=== PATIENT | male | born 1975 | race Caucasian/White ===

== ENCOUNTER 2019-09-20 08:53 | Emergency (ER) | payer OTHER ==
--- NOTE | 2019-09-20 10:10 | EDM.PDOC ---
ED HPI GENERAL MEDICAL PROBLEM - General Chief Complaint: Respiratory Problem Stated Complaint: SOB Time Seen by Provider: 09/20/19 10:10 Source of Information: Reports: Patient History Limitations: Reports: No Limitations - History of Present Illness INITIAL COMMENTS - FREE TEXT/NARRATIVE: HISTORY AND PHYSICAL: History of present illness: Patient is a 44-year-old male presents to the ED with complaint of shortness of breath. Patient states he had a cold with cough and runny nose 6 weeks ago. He states he started feeling better but the shortness of breath has not improved. He reports a tickle in is throat that makes him want to clear it/cough but otherwise cough has resolved. Patient states he has a lot of nasal congestion. He denies chest pain, sore throat, fevers, chills, abdominal pain, vomiting, diarrhea, lower extremity pain or swelling. He states he recently travelled to [place] and back this past week but states symptoms began before then and are not worsened since travelling. Review of systems: As per history of present illness and below otherwise all systems reviewed and negative. Past medical history: As per history of present illness and as reviewed below otherwise noncontributory. Surgical history: As per history of present illness and as reviewed below otherwise noncontributory. Social history: No reported history of drug or alcohol abuse. Family history: As per history of present illness and as reviewed below otherwise noncontributory. Physical exam: General: Patient sitting comfortably in no acute distress and nontoxic appearing HEENT: Atraumatic, normocephalic, pupils reactive, negative for conjunctival pallor or scleral icterus, mucous membranes moist, throat clear, neck supple, nontender, trachea midline. No meningeal signs. Lungs: Clear to auscultation, breath sounds equal bilaterally, chest nontender. Heart: S1S2, regular, negative for clicks, rubs, or overt murmur. Abdomen: Soft, nondistended, nontender. Negative for masses or hepatosplenomegaly. Negative for costovertebral tenderness. No rigidity, rebound , guarding. Pelvis: Stable nontender. Genitourinary: Deferred. Rectal: Deferred. Extremities: Atraumatic, negative for cords or calf pain. Neurovascular unremarkable. Neuro: Awake, alert, oriented. Cranial nerves II through XII unremarkable. Cerebellum unremarkable. Motor and sensory unremarkable throughout. Exam nonfocal. Notes: Patient blood pressure is elevated in the ED. He declines chest pain, headache, dizziness. EKG shows normal sinus rhythm without any ST-T wave changes. Patient states he is suppose to be on blood pressure medication but has not been taking it. Discussed with patient getting labs including troponin but patient declined at this time and states he will follow up with primary care provider. He understands to return to ED if new or worsening symptoms. Diagnostics: Chest x-ray, EKG Therapeutics: none Prescriptions: Ventolin inhaler Augmenting Impression: Bronchitis, sinusitis Plan: Take medications as prescribed Follow up with primary care provider Return to ED as needed as discussed Definitive disposition and diagnosis as appropriate pending reevaluation and review of above. - Related Data Allergies Allergy/AdvReac Type Severity Reaction Status Date / Time morphine Allergy Other Verified 09/20/19 09:12 Home Meds: Home Meds Albuterol [Ventolin HFA] 1 puff INH Q4H #1 inhaler 09/20/19 [Rx] Amoxicillin/Potassium Clav [Augmentin 875-125 Tablet] 1 each PO BID 7 Days #14 tablet 09/20/19 [Rx] Past Medical History - Past Health History Medical/Surgical History: Denies Medical/Surgical History Cardiovascular History: Reports: High Cholesterol, Hypertension - Past Surgical History Musculoskeletal Surgical History: Reports: Other (See Below) Other Musculoskeletal Surgeries/Procedures:: wrist sx Social & Family History - Family History Family Medical History: Noncontributory - Tobacco Use Smoking Status *Q: Former Smoker Years of Tobacco use: 20 Packs/Tins Daily: 0 Used Tobacco, but Quit: Yes Month/Year Tobacco Last Used: 08/2019 - Recreational Drug Use Recreational Drug Use: No ED ROS GENERAL - Review of Systems Review Of Systems: Comprehensive ROS is negative, except as noted in HPI. ED EXAM, GENERAL - Physical Exam Exam: See Below (see dictation) Course - Vital Signs Last Recorded V/S: Last Vital Signs Temp 97.4 F 09/20/19 12:00 Pulse 88 09/20/19 12:00 Resp 16 09/20/19 12:00 BP 180/113 H 09/20/19 12:00 Pulse Ox 93 L 09/20/19 12:00 - Orders/Labs/Meds Orders: Active Orders 24 hr Category Date Time Status EKG Documentation Completion [RC] STAT Care 09/20/19 10:10 Ordered Departure - Departure Time of Disposition: 11:42 Disposition: Home, Self-Care 01 Condition: Good Clinical Impression: Bronchitis, Sinusitis - Discharge Information Prescriptions: Albuterol [Ventolin HFA] 1 puff INH Q4H #1 inhaler Amoxicillin/Potassium Clav [Augmentin 875-125 Tablet] 1 each PO BID 7 Days #14 tablet Instructions: Sinusitis, Adult, [id number], Acute Bronchitis, Adult Referrals: Cheng Martin MD [Primary Care Provider] - Forms: ED Department Discharge Additional Instructions: The following information is given to patients seen in the emergency department who are being discharged to home. This information is to outline your options for follow-up care. We provide all patients seen in our emergency department with a follow-up referral. The need for follow-up, as well as the timing and circumstances, are variable depending upon the specifics of your emergency department visit. If you don't have a primary care physician on staff, we will provide you with a referral. We always advise you to contact your personal physician following an emergency department visit to inform them of the circumstance of the visit and for follow-up with them and/or the need for any referrals to a consulting specialist. The emergency department will also refer you to a specialist when appropriate. This referral assures that you have the opportunity for follow-up care with a specialist. All of these measure are taken in an effort to provide you with optimal care, which includes your follow-up. Under all circumstances we always encourage you to contact your private physician who remains a resource for coordinating your care. When calling for follow-up care, please make the office aware that this follow-up is from your recent emergency room visit. If for any reason you are refused follow-up, please contact the [facility] Emergency Department at and asked to speak to the emergency department charge nurse. [facility] [address] [place] [address] [id number] [address] [address] Take medications as prescribed Follow up with primary care provider Return to ED as needed as discussed Sepsis Event Note - Evaluation Sepsis Screening Result: No Definite Risk - Focused Exam Vital Signs: Vital Signs Temp Pulse Resp BP Pulse Ox 09/20/19 12:00 97.4 F 88 16 180/113 H 93 L 09/20/19 09:07 97.0 F 94 18 191/99 H 94 L Date Exam was Performed: 09/20/19 Time Exam was Performed: 12:50 - My Orders Last 24 Hours: My Active Orders 09/20/19 10:10 EKG Documentation Completion [RC] STAT - Assessment/Plan Last 24 Hours: My Active Orders 09/20/19 10:10 EKG Documentation Completion [RC] STAT
--- NOTE | 2019-09-20 11:14 | CR ---
Chest: 2 views of the chest were obtained. Comparison: No prior chest imaging is available. Heart size and mediastinum are normal. Lungs are clear with no acute parenchymal change. Bony structures are unremarkable. Impression: 1. Nothing acute is appreciated on 2 view chest x-ray. Diagnostic code #1 This report was dictated in MDT
== END 2019-09-20 11:59 | disposition home or self-care (01) ==
LOC: MW.ED 08:53
DX: J40 Bronchitis, not specified as acute or chronic (principal); J32.9 Chronic sinusitis, unspecified; I10 Essential (primary) hypertension; E78.00 Pure hypercholesterolemia, unspecified; Z87.891 Personal history of nicotine dependence; Z88.5 Allergy status to narcotic agent
CPT/HCPCS: 71046; 71046-26; 93005; 99283; 99285-25

== ENCOUNTER 2022-09-09 18:55 | Emergency (ER) | payer BC ==
[2022-09-09] MEDS ORDERED: Sodium Chloride 0.9% 10 ML Syringe FLUSH PRN (19:59)
[2022-09-09] MEDS ORDERED: Sodium Chloride 0.9% 2,500 ML IV ONE (19:59)
[2022-09-09] MEDS ORDERED: Sodium Chloride 0.9% 2.5 ML Syringe FLUSH PRN (19:59)
[2022-09-09] MEDS ORDERED: cefTRIAXone 2 GM in Premix Bag 1 BAG IV ONE (20:04)
[2022-09-09] MEDS ORDERED: HYDROmorphone 1 MG/ML Syringe IVPUSH ONE (20:05)
[2022-09-09 20:55] LABS: CARBON DIOXIDE,CO2 29.1 mmol/L (21.0-32.0); POTASSIUM,K 4.1 mmol/L (3.5-5.1)
[2022-09-09 20:59] LABS: CORONAVIRUS COVID-19 NAA NEGATIVE (NEGATIVE); INFLUENZA A NAA NEGATIVE (NEGATIVE); INFLUENZA B NAA NEGATIVE (NEGATIVE)
== END 2022-09-09 22:29 | disposition home or self-care (01) ==
LOC: MW.ED 18:55
DX: L03.114 Cellulitis of left upper limb (principal); I10 Essential (primary) hypertension; E78.00 Pure hypercholesterolemia, unspecified; E66.9 Obesity, unspecified; Z68.42 Body mass index [BMI] 45.0-49.9, adult; Z88.5 Allergy status to narcotic agent; Z79.899 Other long term (current) drug therapy; Z20.822 Contact with and (suspected) exposure to COVID-19
CPT/HCPCS: 0240U; 36415; 80053; 81001; 83605; 85025; 87040; 87070; 87205; 93970; 93970-26; 96361; 96365; 96375; 99284; 99284-25; J0696; J1170; J7030

== ENCOUNTER 2023-01-11 17:49 | Emergency (ER) | payer BC ==
[2023-01-11] MEDS ORDERED: Clindamycin Phosphate in D5W 900 MG in Premix Bag 1 BAG IV ONE ×2 (18:22)
[2023-01-11] MEDS ORDERED: diphenhydrAMINE 50 MG/ML SDV IVPUSH ONE (19:00)
[2023-01-11 19:09] LABS: BASOPHILS PERCENT AUTO 0.2 % (0.0-1.5); EOSINOPHILS ABSOLUTE AUTO 0.8 K/uL (0.0-0.7); EOSINOPHILS PERCENT AUTO 6.4 % (0.0-7.0); HEMATOCRIT 42.8 % (38.0-50.0); HEMOGLOBIN 13.8 g/dL (13.0-17.0); LYMPHOCYTES ABSOLUTE AUTO 1.6 K/uL (0.6-2.4); LYMPHOCYTES PERCENT AUTO 12.9 % (16.0-40.0); MEAN CORPUSCULAR HEMOGLOBIN 28.6 pg (27.0-32.0); MEAN CORPUSCULAR HGB CONC 32.2 g/dL (31.0-37.0); MEAN CORPUSCULAR VOLUME 88.6 fL (80.0-98.0); MONOCYTES ABSOLUTE AUTO 0.9 K/uL (0.0-0.8); MONOCYTES PERCENT AUTO 7.2 % (0.0-15.0); NEUTROPHILS ABSOLUTE AUTO 8.8 K/uL (1.4-5.7); NEUTROPHILS PERCENT AUTO 73.3 % (48.0-80.0); PLATELET COUNT,PLT 314 K/uL (150-400); RED BLOOD CELL COUNT 4.83 M/uL (4.50-5.90); WHITE BLOOD CELL COUNT,WBC 11.98 K/uL (4.0-11.0)
[2023-01-11 19:22] LABS: A/G RATIO 0.5 (0.9-1.6); ALBUMIN 2.7 g/dL (3.4-5.0); BILIRUBIN TOTAL 0.3 mg/dL (0.2-1.0); C-REACTIVE PROTEIN 4.4 mg/dL (0.00-0.90); CALCIUM 8.1 mg/dL (8.5-10.1); CARBON DIOXIDE,CO2 27.7 mmol/L (21.0-32.0); CREATININE 1.2 mg/dL (0.8-1.3); EST CRCL DRUG DOSING (CG) 73.63 mL/min; PROTEIN TOTAL,TP 7.7 g/dL (6.4-8.2)
== END 2023-01-11 19:55 | disposition home or self-care (01) ==
LOC: MW.ED 17:49
DX: L03.114 Cellulitis of left upper limb (principal); N48.1 Balanitis; E78.00 Pure hypercholesterolemia, unspecified; I10 Essential (primary) hypertension; E66.9 Obesity, unspecified; Z68.41 Body mass index [BMI] 40.0-44.9, adult; Z72.0 Tobacco use; Z88.5 Allergy status to narcotic agent; Z79.899 Other long term (current) drug therapy
CPT/HCPCS: 36415; 80053; 85025; 86140; 96365; 96375; 99283; J1200; J3490; 99284

== ENCOUNTER 2023-07-04 07:06 | Emergency (ER) | payer BC ==
[2023-07-04] MEDS ORDERED: Albuterol/Ipratropium 3.0-0.5 MG/3 ML Neb Soln NEB ONE (07:10)
[2023-07-04] MEDS ORDERED: cefTRIAXone 1 GM in Sodium Chloride 0.9% 50 ML IV ONE ×2 (07:19→07:30)
[2023-07-04] MEDS ORDERED: Sodium Chloride 0.9% 1,000 ML IV ONE ×2 (07:20→09:00)
[2023-07-04] MEDS ORDERED: Magnesium Sulfate/Water 50 ML ONE (07:23)
[2023-07-04] MEDS ORDERED: Lactated Ringers 1,000 ML IV SCH ×2 (07:30→09:45)
[2023-07-04] MEDS ORDERED: Magnesium Sulfate/Water 2 GM in Premix Bag 1 BAG IV STA (07:37)
[2023-07-04 07:38] LABS: BASE EXCESS VENOUS 0.4 (-2.0-3.0); BICARBONATE,VENOUS 27 mEq/L (23-28); HEMATOCRIT 45.5 % (42.0-52.0); MEAN CORPUSCULAR HEMOGLOBIN 27.4 pg (28.0-32.0); MEAN PLATELET VOLUME 10.5 fL (9.4-12.4); PCO2 VENOUS 52 mmHG (41-51); PH,VENOUS 7.33 (7.31-7.41); PLATELET COUNT,PLT 269 K/uL (150-400); RED BLOOD CELL COUNT 5.48 M/uL (4.52-5.90); WHITE BLOOD CELL COUNT,WBC 22.65 K/uL (3.9-11.3)
[2023-07-04 07:43] LABS: PO2 VENOUS < 30 mmHG
[2023-07-04] MEDS ORDERED: LORazepam 2 MG/ML SDV IVPUSH ONE (07:44)
[2023-07-04] MEDS ORDERED: VANCOmycin 2 GM/400 ML 2 GM in Premix Bag 1 BAG IV ONE (08:00)
[2023-07-04 08:12] LABS: A/G RATIO 0.4 (0.9-1.6); ALBUMIN 2.4 g/dL (3.4-5.0); BILIRUBIN TOTAL 1.7 mg/dL (0.2-1.0); CALCIUM 8.1 mg/dL (8.5-10.1); CARBON DIOXIDE,CO2 28.1 mmol/L (21.0-32.0); CREATININE 1.9 mg/dL (0.8-1.3); POTASSIUM,K 4.5 mmol/L (3.5-5.1); PROTEIN TOTAL,TP 7.8 g/dL (6.4-8.2)
[2023-07-04 08:13] LABS: LACTIC ACID 3.6 mmol/L (0.4-2.0)
[2023-07-04] MEDS ORDERED: Ketamine 500 mg/10 ML MDV IV ONE (08:58)
[2023-07-04] MEDS ORDERED: Rocuronium 50 MG/5 ML Vial IV ONE (08:59)
[2023-07-04] MEDS ORDERED: fentaNYL/Normal Saline 2,500 MCG in Premix Bag 1 BAG IV PRN (09:00)
[2023-07-04 09:01] LABS: BAND ABSOLUTE MAN 4.76; BAND PERCENT MAN 21 %; LYMPHOCYTES ABSOLUTE MAN 1.13 K/uL (1.00-4.80); LYMPHOCYTES PERCENT MAN 5 % (24-44); METAMYELOCYTE ABSOLUTE MAN 0.68; METAMYELOCYTE PERCENT MAN 3 %; MONOCYTES ABSOLUTE MAN 1.81 K/uL (0.00-0.80); MONOCYTES PERCENT MAN 8 % (0-8); SEG NEUTROPHILS ABSOLUTE MAN 14.27 K/uL (1.80-7.70); SEG NEUTROPHILS PERCENT MAN 63 % (41-71)
[2023-07-04 09:03] LABS: CORONAVIRUS COVID-19 NAA NEGATIVE (NEGATIVE); INFLUENZA A NAA NEGATIVE (NEGATIVE); INFLUENZA B NAA NEGATIVE (NEGATIVE); RESPIRATORY SYNCYTIAL VIR NAA NEGATIVE (NEGATIVE)
[2023-07-04] MEDS ORDERED: Benzocaine 20% Topical Spray UD ONE (09:19)
[2023-07-04] MEDS ORDERED: HYDROmorphone 1 MG/ML Syringe ONE (09:20)
[2023-07-04] MEDS ORDERED: Norepinephrine Bit/D5W Premix 250 ML ONE (09:25)
[2023-07-04] MEDS ORDERED: Midazolam 1 MG/ML 2 ML SDV IVPUSH ONE (09:43)
[2023-07-04] MEDS ORDERED: Rocuronium 100 MG/10 ML MDV IV STA (09:54)
[2023-07-04] MEDS ORDERED: HYDROmorphone 1 MG/ML Syringe IVPUSH STA (10:02)
[2023-07-04] MEDS ORDERED: Benzocaine 20% Topical Spray UD MUCMEM ONE (10:03)
[2023-07-04] MEDS ORDERED: Norepinephrine Bit/D5W Premix 250 ML IV SCH (10:15)
[2023-07-04] MEDS ORDERED: Midazolam 5 MG/ML SDV ONE (12:02)
[2023-07-04] MEDS ORDERED: Midazolam 5 MG/ML SDV IVPUSH STA (12:10)
== END 2023-07-04 13:20 ==
LOC: MW.ED 07:06
DX: A41.9 Sepsis, unspecified organism (principal); J18.9 Pneumonia, unspecified organism; I10 Essential (primary) hypertension; E78.00 Pure hypercholesterolemia, unspecified; Z20.822 Contact with and (suspected) exposure to COVID-19; Z79.899 Other long term (current) drug therapy; Z88.5 Allergy status to narcotic agent
CPT/HCPCS: 0241U; 31500; 36415; 71045; 80053; 82803; 83605; 83880; 84484; 85025; 85652; 86140; 87040; 93005; 94640; 96365; 96366; 96367; 96368; 96375; 96376; 99291; 99292; A9270; J0696; J1170; J2060; J2250; J3370; J3475; J3490; J7030; J7120; 93010; J7620-GY

== ENCOUNTER 2023-10-19 10:14 | Inpatient (IN) | payer BC ==
[2023-10-19 11:27] LABS: A/G RATIO 0.4 (0.9-1.6); ALANINE AMINOTRANSFERASE,ALT 52 IU/L (14-63); ALBUMIN 2.3 g/dL (3.4-5.0); ALKALINE PHOSPHATASE 95 U/L (46-116); ASPARTATE AMNIOTRANSFERASE,AST 37 IU/L (15-37); BILIRUBIN TOTAL 0.7 mg/dL (0.2-1.0); BLOOD UREA NITROGEN,BUN 36 mg/dL (7.0-18.0); C-REACTIVE PROTEIN <0.05 mg/dL (<0.3); CALCIUM 8.4 mg/dL (8.5-10.1); CARBON DIOXIDE,CO2 20.7 mmol/L (21.0-32.0); CHLORIDE,CL 89 mmol/L (98-107); CREATININE 2.2 mg/dL (0.8-1.3); EST CRCL DRUG DOSING (CG) 39.73 mL/min; GLUCOSE RANDOM 163 mg/dL (74-106); POTASSIUM,K 5.1 mmol/L (3.5-5.1); PROTEIN TOTAL,TP 8.3 g/dL (6.4-8.2); SODIUM,NA 124 mmol/L (136-148)
[2023-10-19 11:30] LABS: ESTIMATED GFR 36 mL/min (>60)
[2023-10-19] MEDS: Ondansetron 4 MG/2 ML SDV IVPUSH ONE (11:47)
[2023-10-19] MEDS: Sodium Chloride 0.9% 1,000 ML IV ONE ×3 (11:54→15:57)
[2023-10-19] MEDS: HYDROmorphone 1 MG/ML Syringe IVPUSH ONE ×2 (11:54→15:34)
[2023-10-19 12:01] LABS: BASOPHILS ABSOLUTE AUTO 0.04 K/uL (0.00-0.20); BASOPHILS PERCENT AUTO 0.2 % (0.0-1.0); EOSINOPHILS ABSOLUTE AUTO 0.03 K/uL (0.00-0.45); EOSINOPHILS PERCENT AUTO 0.2 % (0.0-6.0); HEMATOCRIT 41.4 % (42.0-52.0); IMMATURE GRAN ABSOLUTE AUTO 0.13 K/uL (0.00-0.05); IMMATURE GRAN PERCENT AUTO 0.8 % (0.0-0.4); LYMPHOCYTES ABSOLUTE AUTO 0.71 K/uL (1.00-4.80); LYMPHOCYTES PERCENT AUTO 4.2 % (24.0-44.0); MEAN CORPUSCULAR HEMOGLOBIN 27.7 pg (28.0-32.0); MEAN CORPUSCULAR HGB CONC 33.8 g/dL (32.0-36.0); MEAN CORPUSCULAR VOLUME 81.8 fL (83.0-99.0); MEAN PLATELET VOLUME 10.8 fL (9.4-12.4); MONOCYTES ABSOLUTE AUTO 1.05 K/uL (0.00-0.80); MONOCYTES PERCENT AUTO 6.2 % (0.0-8.0); NEUTROPHILS ABSOLUTE AUTO 14.94 K/uL (1.80-7.70); NEUTROPHILS PERCENT AUTO 88.4 % (41.0-71.0); PLATELET COUNT,PLT 266 K/uL (150-400); RED BLOOD CELL COUNT 5.06 M/uL (4.52-5.90)
[2023-10-19] MEDS: cefTRIAXone 1 GM in Sodium Chloride 0.9% 50 ML IV ONE (12:22)
[2023-10-19 12:28] LABS: LACTIC ACID 1.6 mmol/L (0.4-2.0)
[2023-10-19] MEDS: VANCOmycin 2 GM/400 ML 2 GM in Premix Bag 1 BAG IV ONE (12:54)
[2023-10-19] MEDS: Sodium Chloride 0.9% 10 ML Syringe FLUSH PRN (12:54)
[2023-10-19] MEDS: Sodium Chloride 0.9% 2.5 ML Syringe FLUSH PRN (12:54)
[2023-10-19] MEDS ORDERED: Ondansetron 4 MG Tab.DIS PO PRN (15:16)
[2023-10-19] MEDS ORDERED: Albuterol/Ipratropium 3.0-0.5 MG/3 ML Neb Soln NEB PRN (15:16)
[2023-10-19] MEDS ORDERED: Polyethylene Glycol 3350 Powder 17 GM Packet PO PRN (15:16)
[2023-10-19] MEDS: Enoxaparin 40 MG/0.4 ML Syringe SUBCUT SCH (15:58)
[2023-10-19] MEDS: Acetaminophen 325 MG Tab PO PRN (16:38)
[2023-10-19 17:59] LABS: HEMOGLOBIN A1C 7.6 %
[2023-10-19] MEDS ORDERED: 50% Dextrose in Water 50 ML Syringe IVPUSH PRN (18:34)
[2023-10-19] MEDS ORDERED: Glucagon,Human Recombinant 1 MG Vial IM PRN (18:34)
[2023-10-19 18:55] LABS: CALCIUM 7.7 mg/dL (8.5-10.1); CARBON DIOXIDE,CO2 26.3 mmol/L (21.0-32.0); CREATININE 2.5 mg/dL (0.8-1.3); EST CRCL DRUG DOSING (CG) 34.96 mL/min; POTASSIUM,K 3.8 mmol/L (3.5-5.1)
[2023-10-19] MEDS: traMADol 50 MG Tab PO PRN (20:30)
[2023-10-19] MEDS ORDERED: OLMESARTAN MEDOXOMIL 40 MG PO SCH (21:00)
[2023-10-20] MEDS ORDERED: Naloxone 0.4 MG/ML SDV IVPUSH PRN (00:14)
[2023-10-20] MEDS: HYDROmorphone 0.5 MG/0.5 ML Syringe IVPUSH PRN (00:24)
[2023-10-20] MEDS: Insulin Aspart 100 Units/ML 3 ML Pen SUBCUT SCH (08:11)
[2023-10-20] MEDS: Rosuvastatin 10 MG Tab PO SCH (08:12)
[2023-10-20 08:49] LABS: HEMOGLOBIN 12.4 g/dL (14.0-18.0); MEAN CORPUSCULAR HEMOGLOBIN 28.2 pg (28.0-32.0); MEAN CORPUSCULAR HGB CONC 33.5 g/dL (32.0-36.0); MEAN CORPUSCULAR VOLUME 84.1 fL (83.0-99.0); MEAN PLATELET VOLUME 10.5 fL (9.4-12.4); PLATELET COUNT,PLT 239 K/uL (150-400); WHITE BLOOD CELL COUNT,WBC 19.68 K/uL (3.9-11.3)
[2023-10-20] MEDS ORDERED: Piperacillin/Tazobactam 3.375 GM in Sodium Chloride 0.9% 100 ML IV SCH (09:00)
[2023-10-20 09:12] LABS: LYMPHOCYTES ABSOLUTE MAN 0.98 K/uL (1.00-4.80); LYMPHOCYTES PERCENT MAN 5 % (24-44); MONOCYTES ABSOLUTE MAN 1.38 K/uL (0.00-0.80); MONOCYTES PERCENT MAN 7 % (0-8); SEG NEUTROPHILS ABSOLUTE MAN 17.32 K/uL (1.80-7.70); SEG NEUTROPHILS PERCENT MAN 88 % (41-71)
[2023-10-20 09:13] LABS: A/G RATIO 0.4 (0.9-1.6); BILIRUBIN TOTAL 0.4 mg/dL (0.2-1.0); CALCIUM 7.9 mg/dL (8.5-10.1); CARBON DIOXIDE,CO2 25.6 mmol/L (21.0-32.0); EST CRCL DRUG DOSING (CG) 43.7 mL/min; POTASSIUM,K 3.9 mmol/L (3.5-5.1); PROTEIN TOTAL,TP 7.2 g/dL (6.4-8.2)
[2023-10-20] MEDS: Piperacillin/Tazobactam 4.5 GM in Sodium Chloride 0.9% 100 ML IV ONE (09:54)
[2023-10-20] MEDS: Sodium Chloride 0.9% 1,000 ML IV ONE (10:02)
[2023-10-20] MEDS: Cyclobenzaprine 10 MG Tab PO ONE (10:06)
[2023-10-20] MEDS: HYDROmorphone 1 MG/ML Syringe IVPUSH PRN (10:08)
[2023-10-20] MEDS: oxyCODONE 5 MG Tab PO PRN (11:30)
[2023-10-20] MEDS: Iopamidol 755 MG/ML 500 ML Multipack Bottle IVPUSH STA (11:46)
[2023-10-20] MEDS ORDERED: cefTRIAXone 1 GM in Sodium Chloride 0.9% 50 ML IV SCH (12:00)
[2023-10-20] MEDS: VANCOmycin 1.75 GM/350 ML 1.75 GM in Premix Bag 1 BAG IV SCH (13:12)
[2023-10-20] MEDS: Furosemide 40 MG/4 ML VIAL IVPUSH ONE (13:12)
[2023-10-20 13:24] LABS: BASE EXCESS VENOUS 0.7 (-2.0-3.0); BICARBONATE,VENOUS 28 mEQ/mL (22-28); PCO2 VENOUS 58 mmHG (41-51); PO2 VENOUS < 30 mmHG (80-100)
[2023-10-20] MEDS: Piperacillin/Tazobactam 4.5 GM in Sodium Chloride 0.9% 100 ML IV SCH (17:54)
[2023-10-21] MEDS: Enoxaparin 40 MG/0.4 ML Syringe SUBCUT SCH (08:14)
[2023-10-21] MEDS: Furosemide 40 MG/4 ML VIAL IVPUSH ONE (10:31)
[2023-10-21 11:01] LABS: BASOPHILS ABSOLUTE AUTO 0.07 K/uL (0.00-0.20); BASOPHILS PERCENT AUTO 0.4 % (0.0-1.0); EOSINOPHILS ABSOLUTE AUTO 0.17 K/uL (0.00-0.45); HEMATOCRIT 37.4 % (42.0-52.0); HEMOGLOBIN 12.2 g/dL (14.0-18.0); IMMATURE GRAN ABSOLUTE AUTO 0.35 K/uL (0.00-0.05); LYMPHOCYTES ABSOLUTE AUTO 1.26 K/uL (1.00-4.80); LYMPHOCYTES PERCENT AUTO 7.1 % (24.0-44.0); MEAN CORPUSCULAR HEMOGLOBIN 27.7 pg (28.0-32.0); MEAN CORPUSCULAR HGB CONC 32.6 g/dL (32.0-36.0); MEAN PLATELET VOLUME 10.2 fL (9.4-12.4); MONOCYTES ABSOLUTE AUTO 1.22 K/uL (0.00-0.80); MONOCYTES PERCENT AUTO 6.9 % (0.0-8.0); NEUTROPHILS ABSOLUTE AUTO 14.62 K/uL (1.80-7.70); NEUTROPHILS PERCENT AUTO 82.6 % (41.0-71.0); PLATELET COUNT,PLT 269 K/uL (150-400); WHITE BLOOD CELL COUNT,WBC 17.69 K/uL (3.9-11.3)
[2023-10-21 11:26] LABS: A/G RATIO 0.4 (0.9-1.6); ALBUMIN 1.9 g/dL (3.4-5.0); BILIRUBIN TOTAL 0.4 mg/dL (0.2-1.0); CALCIUM 8.5 mg/dL (8.5-10.1); CARBON DIOXIDE,CO2 29.6 mmol/L (21.0-32.0); CREATININE 1.8 mg/dL (0.8-1.3); EST CRCL DRUG DOSING (CG) 48.56 mL/min; POTASSIUM,K 4.3 mmol/L (3.5-5.1); PROTEIN TOTAL,TP 7.2 g/dL (6.4-8.2)
[2023-10-21] MEDS: VANCOmycin 1.5 GM/300 ML 1.5 GM in Premix Bag 1 BAG IV SCH (12:34)
[2023-10-21] MEDS: Pantoprazole 40 MG in Sodium Chloride 0.9% 10 ML IVPUSH SCH (12:34)
[2023-10-21] MEDS ORDERED: VANCOmycin 1.5 GM/300 ML 1.5 GM in Premix Bag 1 BAG IV SCH (13:00)
[2023-10-22] MEDS: Piperacillin/Tazobactam 4.5 GM in Sodium Chloride 0.9% 100 ML IV SCH ×2 (04:13→19:12)
[2023-10-22] MEDS: Pantoprazole 40 MG Tab.CR PO SCH (09:12)
[2023-10-22 12:58] LABS: HEMATOCRIT 34.2 % (42.0-52.0); HEMOGLOBIN 11.2 g/dL (14.0-18.0); MEAN CORPUSCULAR HGB CONC 32.7 g/dL (32.0-36.0); MEAN CORPUSCULAR VOLUME 85.5 fL (83.0-99.0); MEAN PLATELET VOLUME 11.2 fL (9.4-12.4); PLATELET COUNT,PLT 361 K/uL (150-400); WHITE BLOOD CELL COUNT,WBC 13.53 K/uL (3.9-11.3)
[2023-10-22 13:28] LABS: A/G RATIO 0.3 (0.9-1.6); ALBUMIN 1.8 g/dL (3.4-5.0); BILIRUBIN TOTAL 0.3 mg/dL (0.2-1.0); CALCIUM 8.6 mg/dL (8.5-10.1); CARBON DIOXIDE,CO2 27.3 mmol/L (21.0-32.0); CREATININE 1.6 mg/dL (0.8-1.3); EST CRCL DRUG DOSING (CG) 54.63 mL/min; POTASSIUM,K 4.1 mmol/L (3.5-5.1); PROTEIN TOTAL,TP 7.3 g/dL (6.4-8.2)
[2023-10-22 14:07] LABS: BAND ABSOLUTE MAN 0.27; BAND PERCENT MAN 2 %; BASOPHILS ABSOLUTE MAN 0.14 K/uL (0.00-0.20); BASOPHILS PERCENT MAN 1 % (0-1); EOSINOPHILS ABSOLUTE MAN 0.27 K/uL (0.00-0.45); EOSINOPHILS PERCENT MAN 2 % (0-6); LYMPHOCYTES PERCENT MAN 17 % (24-44); METAMYELOCYTE ABSOLUTE MAN 0.27; METAMYELOCYTE PERCENT MAN 2 %; MONOCYTES ABSOLUTE MAN 0.81 K/uL (0.00-0.80); MONOCYTES PERCENT MAN 6 % (0-8); MYELOCYTE ABSOLUTE MAN 0.27; MYELOCYTE PERCENT MAN 2 %; SEG NEUTROPHILS PERCENT MAN 68 % (41-71)
[2023-10-22] MEDS: VANCOmycin 1.5 GM/300 ML 1.5 GM in Premix Bag 1 BAG IV SCH (17:12)
[2023-10-22] MEDS: Furosemide 40 MG Tab PO SCH (22:50)
[2023-10-23 09:52] LABS: HEMATOCRIT 36.6 % (42.0-52.0); HEMOGLOBIN 11.9 g/dL (14.0-18.0); MEAN CORPUSCULAR HEMOGLOBIN 27.4 pg (28.0-32.0); MEAN CORPUSCULAR HGB CONC 32.5 g/dL (32.0-36.0); MEAN CORPUSCULAR VOLUME 84.3 fL (83.0-99.0); MEAN PLATELET VOLUME 9.8 fL (9.4-12.4); PLATELET COUNT,PLT 421 K/uL (150-400); RED BLOOD CELL COUNT 4.34 M/uL (4.52-5.90); WHITE BLOOD CELL COUNT,WBC 14.24 K/uL (3.9-11.3)
[2023-10-23 10:15] LABS: A/G RATIO 0.3 (0.9-1.6); ALBUMIN 1.7 g/dL (3.4-5.0); BILIRUBIN TOTAL 0.4 mg/dL (0.2-1.0); CALCIUM 7.9 mg/dL (8.5-10.1); CARBON DIOXIDE,CO2 28.5 mmol/L (21.0-32.0); CREATININE 1.5 mg/dL (0.8-1.3); EST CRCL DRUG DOSING (CG) 58.27 mL/min; POTASSIUM,K 4.4 mmol/L (3.5-5.1); PROTEIN TOTAL,TP 7.3 g/dL (6.4-8.2)
[2023-10-23 10:58] LABS: EOSINOPHILS ABSOLUTE MAN 0.43 K/uL (0.00-0.45); EOSINOPHILS PERCENT MAN 3 % (0-6); LYMPHOCYTES ABSOLUTE MAN 1.42 K/uL (1.00-4.80); LYMPHOCYTES PERCENT MAN 10 % (24-44); METAMYELOCYTE ABSOLUTE MAN 0.71; METAMYELOCYTE PERCENT MAN 5 %; MONOCYTES ABSOLUTE MAN 1.42 K/uL (0.00-0.80); MONOCYTES PERCENT MAN 10 % (0-8); MYELOCYTE ABSOLUTE MAN 0.28; MYELOCYTE PERCENT MAN 2 %; SEG NEUTROPHILS ABSOLUTE MAN 9.97 K/uL (1.80-7.70); SEG NEUTROPHILS PERCENT MAN 70 % (41-71)
[2023-10-23] MEDS: Spironolactone 25 MG Tab PO SCH (11:34)
== END 2023-10-23 14:15 | disposition home or self-care (01) | DRG 351 ==
LOC: MW.ED 10:14 → MW.MS 15:00
PROVIDERS: ADMIT Family Medicine; ATTEND Family Medicine
DX: M79.89 Other specified soft tissue disorders (principal); I87.2 Venous insufficiency (chronic) (peripheral); L03.116 Cellulitis of left lower limb; N17.9 Acute kidney failure, unspecified; B95.8 Unspecified staphylococcus as the cause of diseases classified elsewhere; Z66 Do not resuscitate; I10 Essential (primary) hypertension; E66.9 Obesity, unspecified; E86.0 Dehydration; E87.1 Hypo-osmolality and hyponatremia; E78.00 Pure hypercholesterolemia, unspecified; E11.9 Type 2 diabetes mellitus without complications; Z79.899 Other long term (current) drug therapy; Z68.43 Body mass index [BMI] 50.0-59.9, adult; Z91.199 Patient's noncompliance with other medical treatment and regimen due to unspecified reason; Z88.5 Allergy status to narcotic agent
CPT/HCPCS: 36410; 36415; 51701; 71045; 71045-26; 73701-26-LT; 73701-LT; 80048; 80053; 80202; 82803; 82947; 83036; 83605; 85025; 85652; 86140; 87040; 87077; 87154; 87186; 93970; 93970-26; 96361; 96365; 96366; 96367; 96375; 99222; 99232; 99239; 99284-25; 99285; A9270-GY; C9113; J0696; J1170; J1650; J1815-GY; J1940; J2405; J2543; J3370; J3490; J7030; Q9967